=== PATIENT | male | born 1960 | race Caucasian/White ===

== ENCOUNTER 2018-07-13 03:37 | Emergency (ER) | payer OTHER ==
--- NOTE | 2018-07-13 03:47 | ED Physician Documentation ---
History of Present Illness - Stated complaint Stated Complaint: SOA/COLD SWEAT - Chief complaint Chief Complaint: Resp - History obtained from History obtained from: Patient - History of Present Illness Timing: Enter time (02:00), Today Pain level max: 0 Pain level now: 0 Improved by: no ameliorating factors Worsened by: coughing - Additonal information Additional information: awoke at 2 AM this morning dyspneic, coughing, diaphoretic. He has had sinus and chest congestion x 3-4 days that has been steadily worsening. His cough is nonproductive although he feels chest congestion. Review of Systems Constitutional: reports: Chills, Sweats. denies: Fever (has not been measuring temperature at home) Nose: reports: Congestion, Sinus pressure / pain Cardiac: reports: Reviewed and negative Respiratory: reports: Dyspnea, Cough GI: reports: Reviewed and negative PD PAST MEDICAL HISTORY - Past Medical History Past Medical History: Yes : Benign prostate hypertrophy - Past Surgical History Past Surgical History: No - Present Medications Home Medications: Ambulatory Orders Medication Instructions Recorded Confirmed Azithromycin [Zithromax] 250 mg PO DAILY #4 tablet 07/13/18 Tamsulosin HCl [Flomax] 1 cap PO DAILY 07/13/18 07/13/18 - Allergies Allergies/Adverse Reactions: Allergies Allergy/AdvReac Type Severity Reaction Status Date / Time No Known Drug Allergies Allergy Verified 07/13/18 03:43 - Living Situation Living Arrangement: reports: At home PD ED PE NORMAL - Vitals Vital signs reviewed: Yes - General General: Alert and oriented X 3, No acute distress, Well developed/nourished - HEENT HEENT: Moist mucous membranes, Pharynx benign - Neck Neck: Supple, no meningeal sign - Cardiac Cardiac: RRR, No murmur - Respiratory Respiratory: No respiratory distress, Clear bilaterally PD ED PE EXPANDED - HEENT HEENT: Right maxillary sinus TTP, Left maxillary sinus TTP Results - Vitals Vitals: Vital Signs - 24 hr 07/13/18 07/13/18 03:40 04:32 Temperature 36.9 C 36.2 C L Heart Rate 72 69 Respiratory 18 16 Rate Blood Pressure 131/79 H 128/89 H O2 Saturation 100 98 Oxygen O2 Source Room air - EKG (time done) No standard instances Rate: Rate (enter#) (77) Rhythm: NSR [place]: Normal Intervals: Normal FL QRS: Normal Ischemia: Normal ST segments PD MEDICAL DECISION MAKING - ED course Complexity details: reviewed results, re-evaluated patient, considered differential, d/w patient Departure - Departure Disposition: 01 Home, Self Care Clinical Impression: Sinusitis, Respiratory infection Condition: Good Instructions: ED Sinusitis Abx Tx Prescriptions: Azithromycin [Zithromax] 250 mg PO DAILY #4 tablet Discharge Date/Time: 07/13/18 04:40
[2018-07-13 04:33] VITALS: BP 128/89
[2018-07-13] MEDS ORDERED: AZITHROMYCIN 250 MG TABLET PO STA (04:33)
== END 2018-07-13 04:40 | disposition home or self-care (01) ==
LOC: ED 03:37
DX: J32.9 Chronic sinusitis, unspecified (principal); J98.8 Other specified respiratory disorders
CPT/HCPCS: 93005; 99283; A9270